=== PATIENT | male | born 1945 | race Caucasian/White ===

== ENCOUNTER 2017-07-10 09:53 | Day surgery (SDC) | payer MEDICARE ==
[2017-07-09 14:01] VITALS: BMI 26.6
[~2017-07-10 09:53] MED LIST: Cyclopentolate 1% Opth Drop 2 ML BOT FS SCH; EPINEPHrine 0.3 MG in Ophthalmic Irrigation Solution 500 ML FS SCH; Phenylephrine 2.5% Ophth Soln 5 ML BOT FS SCH
[2017-07-10] MEDS ORDERED: Cyclopentolate 1% Opth Drop 2 ML BOT ONE (11:07)
[2017-07-10] MEDS ORDERED: Phenylephrine 2.5% Ophth Soln 5 ML BOT ONE (11:08)
[2017-07-10] MEDS ORDERED: Fentanyl 100 MCG/2 ML VIAL ONE (13:14)
--- NOTE | 2017-07-10 23:23 | OP ---
DATE OF PROCEDURE: 07/10/2017 PREOPERATIVE DIAGNOSIS: Dislocated intraocular lens. POSTOPERATIVE DIAGNOSIS: Dislocated intraocular lens. PROCEDURE: Intraocular lens exchange, right eye. SURGEON: Sandro Borja M.D. ANESTHESIA: General endotracheal anesthesia. COMPLICATIONS: None. PROCEDURE IN DETAIL: The patient was identified in the preoperative holding area. Appropriate infor med consent for the planned surgical procedure on the right eye had been obtained. The patient was t ransported to the operative suite where appropriate cardiopulmonary monitoring was established. Gene ral endotracheal anesthesia was obtained. Local anesthesia was obtained using retrobulbar block. Sc lerotomies were placed supratemporally, inferotemporally, and supranasally. Infusion line was placed inferotemporally. The stone and posterior chamber intraocular lens was mobilized with end-gripping forceps and a Sinskey hook superior temporal. Corneal wound was created using a slit knife. The int raocular lens was cut in half, was removed from the eye. A 21 diopter [id number] IOL was inserted into t he eye. The haptics were externalized at the 2 o'clock and 7 o'clock positions and flared using a th ermal cautery. Supratemporal incision was closed using 9-0 Prolene sutures. Retrobulbar Kenalog and subconjunctival Ancef were placed. Antibiotic ointment was placed, and the eye was patched and shie lded. The patient was taken to the postoperative recovery unit in good condition having suffered no immediate perioperative complications. DISCHARGE INSTRUCTIONS: The patient was instructed to keep patch and shield on, avoid lifting or elder ding, and follow up in the morning with Dr. Borja.
== END 2017-07-10 16:48 | disposition home or self-care (01) ==
LOC: SDC 09:53
PROVIDERS: ATTEND Ophthalmology Retina Specialist
PROC: 08PJ3JZ Removal of Synthetic Substitute from Right Lens, Percutaneous Approach (ICD-10-PCS; principal; 2017-07-10)
PROC: 08RJ3JZ Replacement of Right Lens with Synthetic Substitute, Percutaneous Approach (ICD-10-PCS; 2017-07-10)
DX: T85.22XA Displacement of intraocular lens, initial encounter (principal); E11.9 Type 2 diabetes mellitus without complications; K21.9 Gastro-esophageal reflux disease without esophagitis; Z79.82 Long term (current) use of aspirin; Z79.84 Long term (current) use of oral hypoglycemic drugs; Z79.2 Long term (current) use of antibiotics; Z79.899 Other long term (current) drug therapy; Z98.41 Cataract extraction status, right eye; Z98.42 Cataract extraction status, left eye; Z96.1 Presence of intraocular lens; Z90.89 Acquired absence of other organs; Z98.890 Other specified postprocedural states; Z87.891 Personal history of nicotine dependence; Z85.828 Personal history of other malignant neoplasm of skin
CPT/HCPCS: 66986; C1780; J0171; J3010

== ENCOUNTER 2020-04-11 15:04 | Outpatient (CLI) | payer MEDICARE ==
--- NOTE | 2020-04-11 16:44 | ULT ---
VENOUS DOPPLER ULTRASOUND OF THE RIGHT LOWER EXTREMITY: 04/11/20 HISTORY: Right lower extremity edema. TECHNIQUE: Dixon scale ultrasound with color flow and spectral Doppler imaging of the deep venous system of the r ight lower extremity was performed. FINDINGS: There is good flow, compression, and augmentation noted in the right common femoral, femoral, deep fe moral, popliteal, posterior tibial and greater saphenous veins. IMPRESSION: No evidence of DVT in the right lower extremity. POS: AH
== END 2020-04-11 15:05 | disposition home or self-care (01) ==
LOC: SCSULT 15:04
PROVIDERS: ATTEND Family Medicine
DX: R60.9 Edema, unspecified (principal)

== ENCOUNTER 2021-06-14 11:18 | Outpatient (CLI) | payer MEDICARE ==
[2021-06-14 12:13] LABS: #Basophils 0.1 10x3/uL (0.0-0.2); #Eosinphils 0.2 10x3/uL (0.0-0.5); #Monocytes 0.7 10x3/uL (0.0-1.1); #Neutrophils 3.4 10x3/uL (1.5-8.4); %Eosinophils 3.7 % (0.0-6.0); %Monocytes 10.4 % (0.0-10.0); %Neutrophils 54.3 % (40.0-75.0); Hemoglobin 13.8 g/dL (13.5-17.5); Mean Corpuscular HGB CONC 32.7 g/dL (32.0-36.0); Mean Corpuscular Volume 91.7 fl (81.2-95.1); Mean Platelet Volume 10.1 fl (7.4-10.4); Platelet Count 274 10x3/uL (150-450); RBC Distribution Width 13.3 % (11.5-14.5); White Blood Cell (WBC) Count 6.2 10x3/uL (3.5-10.5)
[2021-06-14 12:47] LABS: Anion Gap 12 mmol/L (10-20); BUN (Urea Nitrogen) 10 mg/dL (8.4-25.7); Calc. Creatinine Clearance 0 mL/min (70-130); Calcium 9.5 mg/dL (7.8-10.44); Carbon Dioxide 27 mmol/L (23-31); Chloride 103 mmol/L (98-107); Glucose 177 mg/dL (83-110); Potassium 4.4 mmol/L (3.5-5.1); Sodium 138 mmol/L (136-145)
[2021-06-14 14:23] LABS: Hemoglobin A1c 7.6 % (4.0-6.0)
[2021-06-15 11:36] LABS: SARS-CoV-2 PCR by NAA Not Detected (NotDetected)
== END 2021-06-14 11:19 | disposition home or self-care (01) ==
LOC: LABBT 11:18
PROVIDERS: ATTEND Surgery
DX: Z01.818 Encounter for other preprocedural examination (principal); K63.89 Other specified diseases of intestine; Z20.822 Contact with and (suspected) exposure to COVID-19
CPT/HCPCS: 80048; 83036; 85025; 93005; U0003; U0005; 93010

== ENCOUNTER 2021-06-14 12:00 | Inpatient (IN) | payer MEDICARE ==
[2021-06-19] MEDS ORDERED: Midazolam HCl 2 mg/2 ml Vial ONE (09:09)
[2021-06-19] MEDS ORDERED: Fentanyl 100 MCG/2 ML VIAL ONE ×4 (09:09→14:30)
[2021-06-19] MEDS ORDERED: Lidocaine 1% (PF) 30 ML VIAL ONE (09:13)
[2021-06-19] MEDS ORDERED: cefOXitin Sodium/Dextrose 2 GM/50 ML BAG ONE ×3 (09:15→18:22)
[2021-06-19] MEDS ORDERED: Glycopyrrolate 0.2 MG/ML 5 ML SYRINGE ONE (10:05)
[2021-06-19] MEDS ORDERED: PROPOFOL 200 MG/20 ML VIAL ONE (10:05)
[2021-06-19] MEDS ORDERED: ePHEDrine 50 MG/ML VIAL ONE (10:05)
[2021-06-19] MEDS ORDERED: Rocuronium Bromide 10 MG/ML (10ML VIAL) ONE (10:05)
[2021-06-19] MEDS ORDERED: Ondansetron PF 4 MG/2 ML Vial ONE (10:05)
[2021-06-19] MEDS ORDERED: Bupivacaine HCl 0.5%/Epinephrine 1:200,000/PF 30 ml Vial ONE (10:05)
[2021-06-19] MEDS ORDERED: Phenylephrine 10 MG/ML VIAL ONE (10:05)
[2021-06-19] MEDS ORDERED: Dexamethasone 20 MG/5 ML VIAL ONE (10:05)
[2021-06-19] MEDS ORDERED: Lidocaine 1% PF 5 ML VIAL ONE (10:05)
[2021-06-19] MEDS ORDERED: Promethazine HCl 25 MG/ML VIAL IVPB PRN (11:45)
[2021-06-19] MEDS ORDERED: Promethazine HCl 25 MG/ML VIAL IM PRN ×2 (11:45→16:37)
[2021-06-19] MEDS ORDERED: Ondansetron HCl/PF 4 MG/2 ML Vial IVP PRN (11:45)
[2021-06-19] MEDS ORDERED: hydrALAZINE 20 MG/ML VIAL SLOW IVP PRN (16:37)
[2021-06-19] MEDS ORDERED: Dextrose 50% Abboject 50 ML SYRINGE SLOW IVP PRN (16:37)
[2021-06-19] MEDS ORDERED: Dextrose 5% in Water 1,000 ML IV PRN (16:37)
[2021-06-19] MEDS: D5 1/2 NS w/20 mEq KCL 1,000 ML IV SCH (21:27)
[2021-06-19] MEDS: Famotidine 20 MG TAB PO SCH (21:28)
[2021-06-19] MEDS: Famotidine/PF 20 mg/2ml Vial SLOW IVP SCH (21:28)
[2021-06-19] MEDS: cefOXitin 2 GM in Sodium Chloride 0.9% 100 ML IVPB SCH (22:40)
[2021-06-19] MEDS: Timolol 0.25% Ophth Soln 5 ml Bottle R EYE SCH (22:42)
[2021-06-19] MEDS: Fentanyl 100 MCG/2 ML VIAL SLOW IVP PRN (23:45)
[2021-06-20] MEDS: cefOXitin 2 GM in Sodium Chloride 0.9% 100 ML IVPB SCH (00:09)
[2021-06-20 00:46] VITALS: BMI 27.8
[2021-06-20] MEDS: Fentanyl 100 MCG/2 ML VIAL SLOW IVP PRN ×2 (04:02→11:46)
[2021-06-20 04:53] LABS: #Basophils 0.1 thou/uL (0.0-0.2); #Lymphocytes 1.3 thou/uL (1.20-3.40); #Monocytes 1.2 thou/uL (0.11-0.59); #Neutrophils 7.4 thou/uL (1.40-6.50); %Basophils 0.5 % (0.0-1.0); %Eosinophils 0.2 % (0.0-10.0); %Lymphocytes 13.2 % (21.0-51.0); %Monocytes 11.7 % (0.0-10.0); %Neutrophils 74.4 % (42.0-75.0); Hemoglobin 12.2 g/dL (14.0-18.0); Mean Corpuscular Hemoglobin 32.2 pg (27.0-31.0); Mean Corpuscular Volume 94.8 fL (78.0-98.0); Mean Platelet Volume 7.7 fL (7.4-10.4); Platelet Count 275 thou/uL (130-400); RBC Distribution Width 12.2 % (11.5-14.5); White Blood Cell (WBC) Count 9.9 thou/uL (4.8-10.8)
[2021-06-20 05:18] LABS: Anion Gap 11 mmol/L (10-20); BUN (Urea Nitrogen) 7 mg/dL (8.4-25.7); Calc. Creatinine Clearance 81 mL/min (70-130); Calcium 9.4 mg/dL (7.8-10.44); Carbon Dioxide 26 mmol/L (23-31); Chloride 104 mmol/L (98-107); Glucose 170 mg/dL (83-110); Potassium 4.1 mmol/L (3.5-5.1); Sodium 137 mmol/L (136-145)
[2021-06-20] MEDS: HumaLOG 300 UNITS/3 ML VIAL SC PRN ×3 (05:54→18:17)
[2021-06-20] MEDS: Famotidine/PF 20 mg/2ml Vial SLOW IVP SCH ×2 (08:42→20:58)
[2021-06-20] MEDS: Enoxaparin Sodium 40 MG/0.4 ML SYRINGE SC SCH (08:42)
[2021-06-20] MEDS: Famotidine 20 MG TAB PO SCH ×2 (08:46→20:59)
[2021-06-20] MEDS: Timolol 0.25% Ophth Soln 5 ml Bottle R EYE SCH ×2 (08:47→20:58)
[2021-06-20] MEDS: D5 1/2 NS w/20 mEq KCL 1,000 ML IV SCH ×2 (11:47→17:39)
[2021-06-20] MEDS ORDERED: Acetaminophen 325 MG TAB PO PRN (12:17)
[2021-06-20] MEDS: HYDROcodone/Acetaminophen 7.5/325 mg Tablet PO PRN ×2 (14:01→20:57)
[2021-06-21] MEDS: HumaLOG 300 UNITS/3 ML VIAL SC PRN ×4 (01:38→17:25)
[2021-06-21] MEDS: Famotidine/PF 20 mg/2ml Vial SLOW IVP SCH ×2 (08:44→22:21)
[2021-06-21] MEDS: Enoxaparin Sodium 40 MG/0.4 ML SYRINGE SC SCH (08:44)
[2021-06-21] MEDS: D5 1/2 NS w/20 mEq KCL 1,000 ML IV SCH (08:45)
[2021-06-21] MEDS: Famotidine 20 MG TAB PO SCH ×2 (08:45→22:19)
[2021-06-21] MEDS: Timolol 0.25% Ophth Soln 5 ml Bottle R EYE SCH ×2 (08:45→22:22)
[2021-06-21] MEDS: Ondansetron PF 4 MG/2 ML Vial IVP PRN (08:50)
[2021-06-22] MEDS: HumaLOG 300 UNITS/3 ML VIAL SC PRN ×4 (00:11→17:22)
[2021-06-22] MEDS: Ondansetron PF 4 MG/2 ML Vial IVP PRN ×2 (01:53→08:47)
[2021-06-22] MEDS: D5 1/2 NS w/20 mEq KCL 1,000 ML IV SCH (06:10)
[2021-06-22] MEDS: Famotidine/PF 20 mg/2ml Vial SLOW IVP SCH ×2 (08:47→20:41)
[2021-06-22] MEDS: Famotidine 20 MG TAB PO SCH ×2 (08:48→22:19)
[2021-06-22] MEDS: Timolol 0.25% Ophth Soln 5 ml Bottle R EYE SCH ×2 (08:48→20:42)
[2021-06-22] MEDS: Enoxaparin Sodium 40 MG/0.4 ML SYRINGE SC SCH (08:53)
[2021-06-22] MEDS: HYDROcodone/Acetaminophen 7.5/325 mg Tablet PO PRN (20:42)
[2021-06-23] MEDS: HumaLOG 300 UNITS/3 ML VIAL SC PRN ×3 (06:31→23:32)
[2021-06-23] MEDS: D5 1/2 NS w/20 mEq KCL 1,000 ML IV SCH (06:32)
[2021-06-23] MEDS: Famotidine/PF 20 mg/2ml Vial SLOW IVP SCH ×2 (09:07→20:30)
[2021-06-23] MEDS: Timolol 0.25% Ophth Soln 5 ml Bottle R EYE SCH ×2 (09:07→20:30)
[2021-06-23] MEDS: Famotidine 20 MG TAB PO SCH ×2 (09:07→20:29)
[2021-06-23] MEDS: Enoxaparin Sodium 40 MG/0.4 ML SYRINGE SC SCH (09:12)
[2021-06-23] MEDS: Ondansetron PF 4 MG/2 ML Vial IVP PRN (15:54)
[2021-06-23] MEDS: HYDROcodone/Acetaminophen 7.5/325 mg Tablet PO PRN (20:29)
[2021-06-23] MEDS: Calcium Carbonate 500 MG ChewTAB PO PRN (23:29)
[2021-06-24] MEDS: Calcium Carbonate 500 MG ChewTAB PO PRN (03:14)
[2021-06-24] MEDS: HumaLOG 300 UNITS/3 ML VIAL SC PRN ×3 (05:40→17:59)
[2021-06-24] MEDS: Famotidine/PF 20 mg/2ml Vial SLOW IVP SCH ×2 (08:28→21:14)
[2021-06-24] MEDS: Timolol 0.25% Ophth Soln 5 ml Bottle R EYE SCH ×2 (08:29→21:15)
[2021-06-24] MEDS: Enoxaparin Sodium 40 MG/0.4 ML SYRINGE SC SCH (08:43)
[2021-06-24] MEDS: Famotidine 20 MG TAB PO SCH ×2 (10:54→21:26)
[2021-06-24] MEDS: Ondansetron PF 4 MG/2 ML Vial IVP PRN (13:19)
[2021-06-24] MEDS ORDERED: Neostigmine 0.5 MG in Pre-Filled Syringe 1 EACH SC SCH (19:00)
[2021-06-24] MEDS ORDERED: Zolpidem Tartrate 5 MG TAB PO PRN (20:25)
[2021-06-25] MEDS: Neostigmine 0.5 MG in Pre-Filled Syringe 1 EACH SC SCH ×2 (00:47→05:30)
[2021-06-25] MEDS: HumaLOG 300 UNITS/3 ML VIAL SC PRN ×2 (00:47→05:30)
[2021-06-25] MEDS: Timolol 0.25% Ophth Soln 5 ml Bottle R EYE SCH (09:41)
[2021-06-25] MEDS: Enoxaparin Sodium 40 MG/0.4 ML SYRINGE SC SCH (09:41)
[2021-06-25] MEDS: Famotidine/PF 20 mg/2ml Vial SLOW IVP SCH (09:41)
[2021-06-25] MEDS: Famotidine 20 MG TAB PO SCH (09:41)
[2021-06-25 11:44] VITALS: BP 139/72; TEMP 97.5
== END 2021-06-25 13:15 | disposition home or self-care (01) | DRG 330 ==
LOC: SURG A 06-19 08:07 → EDSTATUS 06-19 12:00 → SURG B 06-19 21:00
PROVIDERS: ADMIT Surgery; ATTEND Surgery
PROC: 0DTF0ZZ Resection of Right Large Intestine, Open Approach (ICD-10-PCS; principal; 2021-06-19)
PROC: 8E0W0CZ Robotic Assisted Procedure of Trunk Region, Open Approach (ICD-10-PCS; 2021-06-19)
DX: C18.0 Malignant neoplasm of cecum (principal); K56.7 Ileus, unspecified; Z20.822 Contact with and (suspected) exposure to COVID-19; E11.9 Type 2 diabetes mellitus without complications; M19.90 Unspecified osteoarthritis, unspecified site; H40.9 Unspecified glaucoma; Z98.49 Cataract extraction status, unspecified eye; Z98.890 Other specified postprocedural states; Z79.899 Other long term (current) drug therapy; Z79.84 Long term (current) use of oral hypoglycemic drugs
CPT/HCPCS: 36415; 36416; 74019; 80048; 85025; 88309; J0694; J1100; J1650; J1815; J2001; J2250; J2370; J2405; J2550; J2704; J2710; J3010; J3480; J3490; S0028